=== PATIENT | male | born 1990 | race Caucasian/White ===

== ENCOUNTER 2019-07-05 19:41 | Inpatient (IN) ==
[2019-07-05] MEDS ORDERED: KETOROLAC 15 MG/1 ML VIAL IV PRN (20:11)
[2019-07-05] MEDS ORDERED: ONDANSETRON 4 MG/2 ML VIAL IV PRN (20:11)
[2019-07-05] MEDS ORDERED: HYDROmorphone 2 MG/1 ML VIAL IV PRN (20:11)
[2019-07-05] MEDS: DEXTROSE 5% LACTATED RINGERS 1,000 ML IV SCH (21:51)
[2019-07-05] MEDS: PIPERACILLIN/TAZOBACTAM 3,375 MG in SODIUM CHLORIDE 0.9% 100 ML IV SCH (22:30)
[2019-07-06] MEDS: DEXTROSE 5% LACTATED RINGERS 1,000 ML IV SCH ×2 (04:29→20:38)
[2019-07-06] MEDS: PIPERACILLIN/TAZOBACTAM 3,375 MG in SODIUM CHLORIDE 0.9% 100 ML IV SCH ×3 (06:30→22:09)
[2019-07-06 08:15] LABS: Basophils # 0.1 10*3/uL (0.0-0.2); Basophils % 0.7 % (0.0-0.8); Eosinophils # 0.6 10*3/uL (0.0-0.87); Eosinophils % 3.8 % (0.00-10.9); Hematocrit 39.1 VOL% (42.0-52.0); Hemoglobin 13.3 GM/DL (14.0-18.0); Immature Granulocytes % 3.9 %; Immature Granulocytes Absolute 0.58 #; Lymphocytes # 3.1 10*3/uL (1.4-4.0); Lymphocytes % 20.8 % (21.2-54.2); Mean Corpuscular Volume 87.7 FL (87-102); Neutrophils % 57.8 % (38.7-73.9); Platelet Count 291 T/CUMM (130-400); Red Blood Count 4.46 MC/CUMM (3.8-5.5); Red Cell Distribution Width 12.1 % (9.3-17.3); White Blood Count 14.7 T/CUMM (4-12)
[2019-07-06 08:21] LABS: Calcium 8.4 MG/DL (8.5-10.1); Osmolality,Calculated 277.4 MOS/KG (273-304)
[2019-07-06] MEDS: FAMOTIDINE 20 MG/2 ML VIAL IV SCH ×2 (08:41→20:39)
[2019-07-06 10:58] LABS: Eosinophils 2 % (0-10); Lymphocytes 14 % (20-55); Platelet Estimate Normal; Polychromasia Slight; Segmented Neutrophils 73 % (50-85); Total Cells Counted 100
[2019-07-06] MEDS: POTASSIUM CHLORIDE 20 MEQ TABLET PO PRN (20:39)
[2019-07-07 05:31] LABS: Basophils # 0.1 10*3/uL (0.0-0.2); Basophils % 1.1 % (0.0-0.8); Eosinophils # 0.6 10*3/uL (0.0-0.87); Eosinophils % 5.5 % (0.00-10.9); Hemoglobin 12.6 GM/DL (14.0-18.0); Immature Granulocytes % 5.3 %; Immature Granulocytes Absolute 0.62 #; Lymphocytes # 4.1 10*3/uL (1.4-4.0); Lymphocytes % 35.5 % (21.2-54.2); Mean Corpuscular HGB Conc 34.1 GM/DL (32-36); Mean Corpuscular Volume 88.3 FL (87-102); Mean Platelet Volume 9.6 FL (9.6-12.0); Monocytes % 10.8 % (1.7-12.7); Neutrophils % 41.8 % (38.7-73.9); Platelet Count 313 T/CUMM (130-400); Red Blood Count 4.19 MC/CUMM (3.8-5.5); Red Cell Distribution Width 11.9 % (9.3-17.3); White Blood Count 11.6 T/CUMM (4-12)
[2019-07-07] MEDS: PIPERACILLIN/TAZOBACTAM 3,375 MG in SODIUM CHLORIDE 0.9% 100 ML IV SCH (05:55)
[2019-07-07 06:36] LABS: Band Neutrophils 4 % (0-10); Eosinophils 10 % (0-10); Lymphocytes 34 % (20-55); Metamyelocytes 1 %; Myelocytes 1 %; Segmented Neutrophils 44 % (50-85); Total Cells Counted 100
[2019-07-07 06:37] LABS: Microcytosis 1+; Platelet Estimate Normal
[2019-07-07] MEDS: FAMOTIDINE 20 MG/2 ML VIAL IV SCH ×2 (09:23→21:07)
[2019-07-07] MEDS: CIPROFLOXACIN 500 MG TABLET PO SCH ×2 (12:00→21:07)
[2019-07-07] MEDS: POTASSIUM CHLORIDE 20 MEQ TABLET PO PRN (15:06)
[2019-07-07] MEDS: metroNIDAZOLE 500 MG TABLET PO SCH ×2 (15:06→23:06)
[2019-07-08] MEDS: metroNIDAZOLE 500 MG TABLET PO SCH (05:35)
[2019-07-08 06:05] LABS: Basophils # 0.1 10*3/uL (0.0-0.2); Basophils % 1.2 % (0.0-0.8); Eosinophils # 0.5 10*3/uL (0.0-0.87); Eosinophils % 4.3 % (0.00-10.9); Hematocrit 40.1 VOL% (42.0-52.0); Hemoglobin 13.6 GM/DL (14.0-18.0); Immature Granulocytes % 5.8 %; Immature Granulocytes Absolute 0.68 #; Lymphocytes # 3.8 10*3/uL (1.4-4.0); Lymphocytes % 31.9 % (21.2-54.2); Mean Corpuscular HGB Conc 33.9 GM/DL (32-36); Mean Corpuscular Volume 87.7 FL (87-102); Mean Platelet Volume 9.3 FL (9.6-12.0); Monocytes % 9.3 % (1.7-12.7); Neutrophils % 47.5 % (38.7-73.9); Platelet Count 407 T/CUMM (130-400); Red Blood Count 4.57 MC/CUMM (3.8-5.5); Red Cell Distribution Width 11.9 % (9.3-17.3); White Blood Count 11.7 T/CUMM (4-12)
[2019-07-08 06:29] LABS: Band Neutrophils 2 % (0-10); Eosinophils 5 % (0-10); Hypochromasia Slight; Lymphocytes 26 % (20-55); Ovalocytes Slight; Platelet Estimate Adequate; Segmented Neutrophils 57 % (50-85); Total Cells Counted 100
[2019-07-08 06:30] LABS: Microcytosis 1+
[2019-07-08 06:36] LABS: Calcium 8.5 MG/DL (8.5-10.1); Osmolality,Calculated 278.3 MOS/KG (273-304)
[2019-07-08 07:29] VITALS: BP 114/70
== END 2019-07-08 09:55 | disposition home or self-care (01) | DRG 373 ==
LOC: N.ED 19:41 → N.EDINP 20:11 → N.3E 21:37
PROVIDERS: ADMIT Surgery; ATTEND Surgery